=== PATIENT | female | born 1955 | race Caucasian/White ===

== ENCOUNTER → 2017-01-17 | Outpatient (CLI) | payer OTHER ==
[~2017-01-17] MED LIST: Z.0.NO CURRENT MEDS
--- NOTE | 2017-01-17 10:33 | RADRPT ---
EXAM DATE/TIME: 01/17/2017 09:56 [place] COMPARISON: No previous studies available for comparison. INDICATIONS : Pain. MEDICAL HISTORY : Hypertension. SURGICAL HISTORY : section. ENCOUNTER: Initial ACUITY: 1 week PAIN SCORE: 4/10 LOCATION: Back TECHNIQUE: Multiplanar multisequence MRI of the lumbar spine was performed without contrast. FINDINGS: The most caudal appearing lumbar vertebra is numbered as L5. VERTEBRAE: Homogeneous signal. Normal alignment. CONUS: Normal level and configuration. T10-T11: Interspace ridging with disc protrusion adequately evaluated by mother lumbar spine. T11-T12: Disc and neural foramina are unremarkable. T12-L1: Mild central disc bulging without significant neural impingement. L1-L2: The thecal sac has a normal diameter. No evidence of disc bulge or protrusion. The neural foramina are patent bilaterally. L2-L3: Right-sided disc protrusion with moderate encroachment on the right L2 root. Mild degenerative krause ges in the facets. L3-L4: The thecal sac has a normal diameter. No evidence of disc bulge or protrusion. The neural foramina are patent bilaterally. L4-L5: Moderate left-sided disc protrusion encroaching on the left L4 root and the left L5 root in its later al recess. L5-S1: Partial sacralization of L5. Perineural cyst on the right at S1. CONCLUSION: Disc disease as described above worse at L4-5 on the left. Right-sided disc protrusion L2-3. Maninder Gomez MD FACR on January 17, 2017 at 10:25 Board Certified Radiologist. This report was verified electronically.
== END ==
LOC: HRAD 09:24
DX: M47.816 Spondylosis without myelopathy or radiculopathy, lumbar region (principal)
CPT/HCPCS: 72148